=== PATIENT | male | born 1960 | race Caucasian/White ===

== ENCOUNTER 2017-02-28 16:13 | Emergency (ER) | payer OTHER ==
[~2017-02-28] VITALS: Ht 160 cm; Wt 71.8 kg
[2017-02-28 17:01] LABS: microscopic required? NO
[2017-02-28 17:25] LABS: urine erythrocyte NEGATIVE (NEGATIVE)
[2017-02-28 17:28] LABS: BASOPHIL % 0.4 % (0-2); PLATELET COUNT 171 x10^3mcL (130-400); RED CELL DISTRIBUTION WIDTH 13.1 % (11.5-14.5)
[2017-02-28 17:43] LABS: CALCIUM 8.2 mg/dL (8.5-10.1); CHLORIDE SERUM 100 mmol/L (98-107); CREATININE SERUM 1.2 mg/dL (0.7-1.3); GFR1 > 60 mL/min; GLUCOSE SERUM 161 mg/dL (74-106); POTASSIUM SERUM 4.1 mmol/L (3.5-5.1); SODIUM SERUM 134 mmol/L (136-145)
[2017-02-28 17:52] LABS: ALKALINE PHOSPHATASE 104 U/L (46-116); ALT/SGPT 83 U/L (16-63); AST/SGOT 73 U/L (15-37); BILIRUBIN TOTAL 0.5 mg/dL (0.20-1.00); TOTAL PROTEIN, SERUM 7.3 g/dL (6.4-8.2)
[2017-02-28 17:54] LABS: ALBUMIN 3.3 g/dL (3.4-5.0)
[2017-02-28 17:56] LABS: CK-MB < 0.5 ng/mL (0-3.6); CREATINE KINASE 119 U/L (39-308)
[2017-02-28 19:02] VITALS: BP 143/94
== END 2017-02-28 19:02 | disposition home or self-care (01) ==
LOC: ED 16:13
PROVIDERS: Emergency Medicine
DX: R50.9 Fever, unspecified (principal); M79.1 Myalgia; R05 Cough; I10 Essential (primary) hypertension
CPT/HCPCS: 83880; 87804; J7030; Q0092